=== PATIENT | female | born 1950 | race Caucasian/White ===

== ENCOUNTER → 2020-12-12 | Day surgery (SDC) | payer MEDICARE, OTHER ==
[~2020-12-12] VITALS: Ht 157.5 cm; Wt 61.2 kg
[~2020-12-12] MED LIST: COZAAR50 MG PO; HYDROCHLOROTH12.5 MG PO; LEVOTHYROXINE100 MC2 PO; MOBIC7.5 MG PO; PRAVASTATIN SOD80 MG PO; VITAMIN C500 M5 PO; VITAMIN D3250 MC1 PO
== END | disposition home or self-care (01) ==
LOC: FAS 05:52
DX: Z12.11 Encounter for screening for malignant neoplasm of colon (principal); K57.30 Diverticulosis of large intestine without perforation or abscess without bleeding; K64.8 Other hemorrhoids; I10 Essential (primary) hypertension; E78.00 Pure hypercholesterolemia, unspecified; E03.9 Hypothyroidism, unspecified; Z88.0 Allergy status to penicillin; Z79.84 Long term (current) use of oral hypoglycemic drugs; Z79.899 Other long term (current) drug therapy; Z98.51 Tubal ligation status; Z90.710 Acquired absence of both cervix and uterus; Z20.822 Contact with and (suspected) exposure to COVID-19
CPT/HCPCS: J1610; J2250; J2704; J7120